=== PATIENT | male | born 1970 | race African-American/Black ===

== ENCOUNTER 2016-11-23 12:41 | Emergency (ER) | payer BC, OTHER ==
[2016-11-23 12:56] VITALS: BP 150/98; PULSE 61; TEMP 98; BMI 32.3
[2016-11-23] MEDS ORDERED: IBUPROFEN 600 MG TABLET (FP) PO ONE ×2 (14:02→14:11)
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
== END 2016-11-23 14:45 | disposition home or self-care (01) ==
LOC: JERFT 12:41
DX: S29.011A Strain of muscle and tendon of front wall of thorax, initial encounter (principal); S39.012A Strain of muscle, fascia and tendon of lower back, initial encounter; M25.512 Pain in left shoulder; V43.52XA Car driver injured in collision with other type car in traffic accident, initial encounter; Y92.414 Local residential or business street as the place of occurrence of the external cause; Y93.89 Activity, other specified
CPT/HCPCS: 73030-TC-LT; 99281-25

== ENCOUNTER 2016-11-27 14:23 | Emergency (ER) | payer BC, OTHER ==
[2016-11-27 14:31] VITALS: BP 131/78; PULSE 73; TEMP 97.8; BMI 32.5
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
--- NOTE | 2016-12-03 11:56 | EKG ---
Test Reason : Blood Pressure : / mmHG Vent. Rate : 069 BPM Atrial Rate : 069 BPM P-R Int : 180 ms QRS Dur : 162 ms QT Int : 446 ms P-R-T Axes : 036 -12 013 degrees QTc Int : 477 ms NORMAL SINUS RHYTHM RIGHT BUNDLE BRANCH BLOCK MINIMAL VOLTAGE CRITERIA FOR LVH, MAY BE NORMAL VARIANT ABNORMAL ECG WHEN COMPARED WITH ECG OF 26-MAR-2016 12:25, NO SIGNIFICANT CHANGE WAS FOUND Confirmed by GABRIEL MENDEZ MD ([id number]) on 12/03/2016 11:55:34 AM Referred By: Confirmed By:GABRIEL MENDEZ MD
== END 2016-11-27 16:46 | disposition home or self-care (01) ==
LOC: JERFT 14:23
DX: R05 Cough (principal); I10 Essential (primary) hypertension; E78.00 Pure hypercholesterolemia, unspecified; Z86.79 Personal history of other diseases of the circulatory system
CPT/HCPCS: 71020-TC; 93005; 93010; 99281-25